=== PATIENT | female | born 1970 | race Caucasian/White ===

== ENCOUNTER → 2017-03-25 | Outpatient (CLI) | payer BC | END | disposition home or self-care (01) | LOC: SMA 09:17 | PROVIDERS: ATTEND Family Medicine | DX: R92.0 Mammographic microcalcification found on diagnostic imaging of breast (principal) | CPT/HCPCS: G0206 ==

== ENCOUNTER 2017-06-27 13:44 | Outpatient (CLI) | payer OTHER, BC | END 2017-06-27 15:00 | disposition home or self-care (01) | LOC: SMA 13:44 | PROVIDERS: ATTEND Family Medicine | DX: R92.8 Other abnormal and inconclusive findings on diagnostic imaging of breast (principal) | CPT/HCPCS: 77066 ==

== ENCOUNTER 2017-12-17 08:35 | Outpatient (CLI) | payer OTHER, BC | END 2017-12-17 17:43 | disposition home or self-care (01) | LOC: SMA 08:35 | PROVIDERS: ATTEND Family Medicine | DX: R92.8 Other abnormal and inconclusive findings on diagnostic imaging of breast (principal) | CPT/HCPCS: 77066 ==

== ENCOUNTER 2018-04-17 10:55 | Outpatient (CLI) | payer OTHER, BC | END 2018-04-17 19:38 | disposition home or self-care (01) | LOC: SMA 10:55 | PROVIDERS: ATTEND Family Medicine | DX: R92.0 Mammographic microcalcification found on diagnostic imaging of breast (principal) | CPT/HCPCS: 77066 ==

== ENCOUNTER 2020-02-04 09:55 | Outpatient (CLI) | payer OTHER, BC | END 2020-02-04 20:35 | disposition home or self-care (01) | LOC: SMA 09:55 | PROVIDERS: ATTEND Family Medicine | DX: R92.2 Inconclusive mammogram (principal); R92.8 Other abnormal and inconclusive findings on diagnostic imaging of breast | CPT/HCPCS: 76642; 77066 ==